=== PATIENT | male | born 1995 | race Two or more races ===

== ENCOUNTER 2017-03-15 23:22 | Emergency (ER) | payer SELFPAY ==
[~2017-03-15] VITALS: Ht 180.3 cm; Wt 72.6 kg
[2017-03-15 23:46] VITALS: BP 136/79
[2017-03-16 02:58] LABS: Basophils # (auto) 0.1 uL; Eosinophils # (auto) 0 uL; Eosinophils % (auto) 0.5 % (0.0-7.0); Hematocrit 46.9 % (41.0-53.0); Hemoglobin 15.8 g/dL (13.5-17.5); Lymphocytes # (auto) 1.7 uL; Lymphocytes % (auto) 17.1 % (10.0-50.0); Mean Corpuscular Hemoglobin 29.3 pg (28.0-32.0); Mean Corpuscular Hgb Conc. 33.7 g/dL (32.0-36.0); Mean Corpuscular Volume 86.7 fL (80.0-100.0); Mean Platelet Volume 8.4 fL (7.4-10.4); Monocytes # (auto) 0.6 uL; Monocytes % (auto) 5.8 % (0.0-12.0); Neutrophils # (auto) 7.4 uL; Neutrophils % (auto) 75.6 % (37.0-80.0); Platelet Count (auto) 274 10^3/uL (140-450); Red Cell Distribution Width 13.4 % (11.6-16.0); White Blood Cell 9.8 10^3/uL (4.4-10.8)
[2017-03-16 03:05] LABS: Albumin 4.6 g/dL (3.4-5.0); Anion Gap 9 (5-15); Blood Urea Nitrogen 13 mg/dL (7-18); Calcium 9.3 mg/dL (8.5-10.1); Carbon Dioxide 27 mmol/L (21-32); Chloride 104 mmol/L (98-107); Glucose 91 mg/dL (74-106); Potassium 3.8 mmol/L (3.5-5.1); Sodium 140 mmol/L (136-145)
[2017-03-16 03:08] LABS: Aspartate Aminotransferase 24 U/L (15-37); BUN/Creatinine Ratio 13.7; GFR African American 129 mL/min; GFR Non-African American 106 mL/min
[2017-03-16 03:11] LABS: INR 0.98 (0.9-1.15); Partial Thromboplastin Time 25.3 sec (22.64-33.71); Prothrombin Time 10.6 sec (9.37-12.3)
[2017-03-16 03:13] LABS: Alkaline Phosphatase 66 U/L (45-117); Bilirubin, Total 0.7 mg/dL (0.2-1.0); Total Protein 8.5 g/dL (6.4-8.2)
[2017-03-16] MEDS ORDERED: LIDOCAINE 1% HCL (LOCAL ANESTH.) INJ 20ML MDV ONE (03:42)
[2017-03-16] MEDS ORDERED: LIDOCAINE 1% HCL (LOCAL ANESTH.) INJ 20ML MDV IN ONE (04:15)
== END 2017-03-16 04:16 | disposition home or self-care (01) ==
LOC: ER 23:22
DX: S01.112A Laceration without foreign body of left eyelid and periocular area, initial encounter (principal); F12.10 Cannabis abuse, uncomplicated; M25.521 Pain in right elbow; V43.52XA Car driver injured in collision with other type car in traffic accident, initial encounter; Y93.89 Activity, other specified; Y99.8 Other external cause status; Y92.89 Other specified places as the place of occurrence of the external cause
CPT/HCPCS: 12011; 36415; 71010; 73070; 80053; 84484; 85025; 85610; 85730; 93005; 99285; J2001